=== PATIENT | male | born 1950 | race African-American/Black ===

== ENCOUNTER 2020-03-20 09:42 | Outpatient (CLI) | payer MEDICARE, SELFPAY ==
[2020-03-20 12:05] LABS: Hematocrit 38.9 % (42.0-52.0); Hemoglobin 13.1 g/dL (14.0-18.0)
[2020-03-20 12:16] LABS: INR 2.4; Prothrombin Time 26.9 Seconds (11.1-14.7)
[2020-03-20 12:17] LABS: Partial Thromboplastin Time 40.7 SECONDS (22.3-36.8)
== END 2020-03-20 09:43 | disposition home or self-care (01) ==
LOC: ANHSURGERY 09:42
PROVIDERS: Anesthesiology; Visit Provider Surgery
DX: D12.6 Benign neoplasm of colon, unspecified (principal); Z79.01 Long term (current) use of anticoagulants; Z01.812 Encounter for preprocedural laboratory examination
CPT/HCPCS: 36415; 85014; 85018; 85610; 85730; 86850; 86900; 86901

== ENCOUNTER 2020-03-27 00:31 | Outpatient (CLI) | payer MEDICARE, SELFPAY ==
[2020-03-27 18:46] LABS: SARS-CoV-2 RNA PCR Negative
== END 2020-03-27 00:32 | disposition home or self-care (01) ==
LOC: ANHCOVIDDT 00:31
PROVIDERS: Visit Provider Surgery
DX: Z01.812 Encounter for preprocedural laboratory examination (principal); Z20.822 Contact with and (suspected) exposure to COVID-19
CPT/HCPCS: C9803; U0003; U0005

== ENCOUNTER 2020-03-31 09:51 | Inpatient (IN) | payer MEDICARE, SELFPAY ==
[2020-03-20 10:13] VITALS: BMI 24.1
--- NOTE | 2020-03-30 12:00 | WPDANESEPPF ---
Anes - Initial Pre Proc Eval Procedure: Operation Date: 03/31/20 09:00 Proposed Procedures p Hand Assisted Laparoscopic Sigmoidectomy, Possible Open - Isidro Fofana DO Date/Time: 03/30/20 12:00 Surgeon: Isidro Fofana DO Pre Op Diagnosis: Turbular Adenoma of Colon Patient Data Age: 69 Gender: M Height: 1.75 m Weight: 74.1 kg Allergies Allergy/AdvReac Type Severity Reaction Status Date / Time No Known Allergies Allergy Verified 03/31/20 07:43 Home Medications Medication Instructions Recorded Confirmed Type atorvastatin 40 mg tablet 40 mg PO QPM 02/18/20 03/31/20 History losartan 100 mg tablet 100 mg PO QAM 02/18/20 03/31/20 History metoprolol succinate 25 mg 25 mg PO QAM 02/18/20 03/31/20 History tablet,extended release 24 hr multivitamin,[id number] 1 tablet PO DAILY 02/18/20 03/31/20 History nifedipine 60 mg tablet,extended 60 mg PO BID 02/18/20 03/31/20 History release tamsulosin 0.4 mg capsule 0.4 mg PO DAILY 02/18/20 03/31/20 History warfarin 2 mg tablet 1 mg PO DAILY 02/18/20 03/31/20 History warfarin 5 mg tablet 5 mg PO DAILY 02/18/20 03/31/20 History aspirin 81 mg PO DAILY 03/20/20 03/31/20 History metronidazole 500 mg PO DIRECTED 03/20/20 03/31/20 History neomycin 500 mg PO DIRECTED 03/20/20 03/31/20 History Patient hx anesthesia problems: none Family hx anesthesia problems: none [facility] Past Medical History Medical History (Updated 03/30/20 @ 12:02 by Gerardo Alfred MD) Antiplatelet or antithrombotic long-term use BPH (benign prostatic hyperplasia) Chronic GERD High cholesterol Hypertension Tobacco abuse Tubular adenoma of colon Surgical History Surgical History (Updated 03/30/20 @ 12:02 by Gerardo Alfred MD) H/O colonoscopy 01/27/2020 History of artificial heart valve aortic valve History of intravascular stent placement right leg Family History Family History Sibling Malignant neoplasm of prostate Sibling Breast cancer Social History Social History Smoking packs per day: 1 Smoking cigarettes per day: 20.0 Years smoked: 50 Smoking pack-years: 50.00 Smoking status: Current every day smoker Tobacco type: cigarettes Alcohol intake: current Drinks per week: 3 Alcohol use details: 3 BEERS/DAY Substance use: former Substance use type: crack/cocaine Last use: 1984 Living arrangements: alone Spiritual care concerns: No Anes - Eval Final PreProcedure Day of Procedure 03/30/20 12:00 Patient weight: normal Heart: regular rate and rhythm Lungs: clear to auscultation and normal air movement Airway: Mallampati scale class II Neurological: alert and oriented Last oral intake: >/= 8 hours ASA classification: III Emergent: no Anesthetic plan: proceed Anesthesia type and monitoring: general ETT Informed Consent: The patient's anesthetic plan and its attendant risks and benefits were discussed with the patient/family/POA. Questions were solicited and answers provided to the satisfaction of the patient/family/POA.
[2020-03-31] VITALS (17 sets, daily range): BP systolic 111–129; BP diastolic 52–79; PULSE 52–75; RESP 11–20; TEMP 35.8–37.1; O2SAT 95–100
--- NOTE | ~2020-03-31 | XR_ITS ---
EXAMINATION: XR abdomen obstructive series DATE: 04/03/2020 10:40 INDICATION: Bloating. Sigmoid colectomy on 03/31/2020. TECHNIQUE: Upright and supine views of the abdomen on 3 radiographs were obtained. COMPARISON: None. FINDINGS: There are dilated loops of small and large bowel. There is a small volume of free intraperi toneal gas, consistent with recent surgery. There are changes of heart valve replacement. IMPRESSION: 1. Dilated small and large bowel, consistent with adynamic ileus. Reviewed, dictated and finalized at location B. P [employer]ER
[2020-03-31] MEDS: ACETAMINOPHEN 500 MG TABLET 1000 MG PO ×3 (07:46→23:31)
[2020-03-31] MEDS: LACTATED RINGERS 1,000 ML 30 ML IV CONT ×2 (07:55→13:09)
--- NOTE | 2020-03-31 07:56 | WPDANESPNB ---
Anes - Peripheral Nerve Block Date/Time: 03/31/20 07:56 I have discussed with the patient/family/POA the placement of a peripheral nerve block for post-operative pain management, including associated risks, benefits, complications, and side effects. Alternative methods of post-operative analgesia were detailed. Questions were solicited and answers provided to the satisfaction of the patient/family/POA. Time-Out: A pre-procedural Time-Out was completed immediately before starting the procedure and confirmed: Patient Identification, Site, Procedure, Patient Position and the Availability of Requisite Equipment. Clinical Indications: Acute post-operative pain management requested by the operative surgeon. Nerve Block Insertion Note Anes-nerve block: other (b/l t8 SHABBIR block) Patient position: supine Skin prep: chlorhexidine Needle: 22 gauge, stimulating, insulated echogenic needle. Needle length: 80 mm Technique: ultrasound (in plane) Injectate: bupivacaine 0.25% with epi 5 mcg/ml (40cc) Observations: tolerated well Complications: none Procedure start time:: 915 Procedure end time:: 920
[2020-03-31] MEDS: KETOROLAC 15 MG/ML VIAL (*BKC) IV PUSH (08:00)
--- NOTE | 2020-03-31 08:48 | PM.IMHP ---
H&P: HPI History of Present Illness Date/Time: 03/31/20 08:48 Chief Complaint: Sigmoid polyp Narrative: Myke Strickland is a 69 year old male who presents for sigmoid colon resection for a large polyp. He had a recent screening colonoscopy done at an outside facility which showed evidence of a large polyp in his sigmoid colon about 25 cm from the anus. The polyp was biopsied and tattooed. Pathology showed evidence of tubular adenoma. He now presents for surgical resection. He has a history of aortic valve replacement and was on warfarin for this. 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 Review of Systems Review of Systems: All systems reviewed & are unremarkable except as noted in HPI and below PMFSH Past Medical History Medical History Antiplatelet or antithrombotic long-term use BPH (benign prostatic hyperplasia) Chronic GERD High cholesterol Hypertension Tobacco abuse Tubular adenoma of colon Surgical History Surgical History H/O colonoscopy 01/27/2020 History of artificial heart valve aortic valve History of intravascular stent placement right leg Family History Family History Sibling Malignant neoplasm of prostate Sibling Breast cancer Social History Social History Smoking packs per day: 1 Smoking cigarettes per day: 20.0 Years smoked: 50 Smoking pack-years: 50.00 Smoking status: Current every day smoker Tobacco type: cigarettes Alcohol intake: current Drinks per week: 3 Alcohol use details: 3 BEERS/DAY Substance use: former Substance use type: crack/cocaine Last use: 1984 Living arrangements: alone Spiritual care concerns: No Meds Home Medications and Allergies Home Medications Medication Instructions Recorded Confirmed Type atorvastatin 40 mg tablet 40 mg PO QPM 02/18/20 03/31/20 History losartan 100 mg tablet 100 mg PO QAM 02/18/20 03/31/20 History metoprolol succinate 25 mg 25 mg PO QAM 02/18/20 03/31/20 History tablet,extended release 24 hr multivitamin,[id number]-czbz-[id number] 1 tablet PO DAILY 02/18/20 03/31/20 History nifedipine 60 mg tablet,extended 60 mg PO BID 02/18/20 03/31/20 History release tamsulosin 0.4 mg capsule 0.4 mg PO DAILY 02/18/20 03/31/20 History warfarin 2 mg tablet 1 mg PO DAILY 02/18/20 03/31/20 History warfarin 5 mg tablet 5 mg PO DAILY 02/18/20 03/31/20 History aspirin 81 mg PO DAILY 03/20/20 03/31/20 History metronidazole 500 mg PO DIRECTED 03/20/20 03/31/20 History neomycin 500 mg PO DIRECTED 03/20/20 03/31/20 History Allergies Allergy/AdvReac Type Severity Reaction Status Date / Time No Known Allergies Allergy Verified 03/31/20 07:43 Vital Signs Vital Signs - 24 hr 03/31/20 06:46 Temperature 36.4 C Pulse Rate 70 Respiratory Rate 20 Blood Pressure 128/68 Pulse Oximetry 100 Exam Const: General: no acute distress and alert Orientation/consciousness: patient oriented x3 HENMT: Head: normocephalic and atraumatic Ears: hearing grossly normal bilaterally General nose exam: Normal nares present Mouth: Yes Normal oral and palatal mucosa present Eyes: Periorbital: periorbital findings normal Sclera: sclerae normal EOM: EOMs intact bilaterally Neck: Neck: normal visual inspection, no lymphadenopathy and trachea midline Chest: Chest palpation & inspection: normal inspection of the chest Resp: Effort & Inspection: normal respiratory effort Auscultation: clear to auscultation bilaterally Cardio: Jugular venous distension: no JVD Rate: regular rate Rhythm: regular rhythm Heart sounds: S1 normal heart sound present and S2 normal heart sound present Peripheral pulses: Peripheral pulses 2+ throughout GI: Inspection: normal to inspection GI Palp: Yes Soft to pa
--- NOTE | 2020-03-31 09:39 | WPDHPUPDATE1 ---
History and Physical Update Update Date/Time: 03/31/20 09:39 History and Physical has been reviewed, including an updated exam of the patient. There are NO changes in the patient's condition. Risks, benefits, and alternatives have been discussed and questions answered. Patient agrees to proceed with procedure.
[2020-03-31] MEDS: ceFAZolin 2 GM/D5W 50 ML 2 GM/50 ML BAG IVPB (09:42)
[2020-03-31] MEDS: metroNIDAZOLE 500 MG/ISO 100ML 500 MG/100 ML BAG 100 MG IVPB (10:00)
--- NOTE | 2020-03-31 10:56 | SUR.OPER ---
Bowel Prep/ 1000ml IV NS infused into bowel via TUR Tubing and Mallecot Catheter 36Fr. Infused slowly in increments. Clear return. Followed by 237ml Betadine flush via bulb syringe. 2000ml drainage bag to mallecot secure to leg strap posterior right thigh/bag to gravity.
--- NOTE | 2020-03-31 11:10 | SUR.OPER ---
Patients coagulation labs of 03/20/[address] Fofana and Dr Alfred/patient stated Coumadin stop date 03/25 no repeat lab/Dr Aguirre aware and to proceed.
--- NOTE | 2020-03-31 12:02 | SUR.OPER ---
ICG Dye to anesthesia 1120 see anesthesia record.
--- NOTE | 2020-03-31 13:04 | PM.PROC ---
Procedure Note - Detailed Date of procedure: 03/31/20 Pre-op diagnosis: Turbular Adenoma of Colon Post-op diagnosis: same Procedure performed: 1. Hand assisted laparoscopic sigmoid colectomy with colorectal anastomosis 2. Laparoscopic mobilization of splenic flexure Description of procedure: Procedure as well as risks benefits and alternatives were explained to the patient. Written consent was obtained and placed in chart prior to procedure. Patient was brought back to surgical suite. He was placed supine on operating table. Time-out was done to confirm patient procedure. He was then intubated by the anesthesia department. He was re-positioned to modified lithotomy position. His abdomen was prepped and draped in sterile fashion using chlorhexidine prep. His rectum was irrigated with Betadine and his perirectal area was prepped and draped in sterile fashion using Betadine prep. A 7 centimeter vertical incision was made at the umbilicus using a 15 blade scalpel. Electrocautery was used for hemostasis and for dissection down through Nile's fascia. The linea alba was then incised using electrocautery. The peritoneum was bluntly entered using a curved hemostats. I carefully inspected the abdomen through the small hand port incision, and then placed the wound protector at this incision followed by the gel port with a 5 millimeter trocar placed through it. Carbon dioxide insufflation was then used to create a pneumoperitoneum. The abdomen was inspected, and no significant abnormalities were identified. The patient was then placed in steep Trendelenburg position and rotated to the right. Exparel was infiltrated bilaterally along the abdominal wall to perform a transversus abdominis plane block. A 5 millimeter incision was made in the suprapubic region and in the right upper quadrant and 5 millimeter ports were placed under direct visualization. A 12 millimeter incision was made in the right lower quadrant, and a 12 millimeter port was placed under direct visualization. I placed my left hand through the GelPort and carefully inspected the colon. The sigmoid colon was retracted anteriorly to tent up the inferior mesenteric artery and mesocolon. The medial side of the peritoneum was scored using hook electrocautery. I entered into the avascular retroperitoneal plane and continued the medial to lateral dissection. The left ureter was identified and preserved in its location throughout the entire case. The continued dissection with hook electrocautery and ligasure bipolar cautery to clear off the adventitia around the inferior mesenteric artery. Once the inferior mesenteric artery was isolated, I then ligated it with the ligasure bipolar cautery. The ureter was identified and position was verified before like getting the vessel. I then continued along the medial to lateral plane and dissected out to the lateral peritoneal attachments of the descending and sigmoid colon. I then continued this dissection distally along the upper rectum. The sigmoid colon was then retracted further medially and the lateral peritoneal attachments were taken down using hook electrocautery. I continued this dissection up to the descending colon, and as I a required further mobilization of the descending colon I then took down the splenic flexure using ligasure bipolar cautery. The descending colon appeared mobile enough to come down into the pelvis. I then cleared off an area on the upper rectum and took down the mesorectum using ligasure bipolar cautery. The echelon 60 millimeter blue load stapler was then advanced across the upper rectum and clamped and fired. This freed up our rectum completely. The staple line appeared secure. Indocyanine green was then infused intravenously to assess for perfusion to the colon and rectal stump. Perfusion appeared adequate at both ends. The patient was then flattened out in bed and the pneumoperitoneum was released. The sigmoid colon was the
[2020-03-31] MEDS: HYDROmorphone HCL INJ (*CRX) 1 MG/ML SYR 0.25 MG IV PUSH ×4 (13:31→14:10)
--- NOTE | 2020-03-31 14:21 | SUR.PHASEI ---
1420 sbar faxed floor notified
--- NOTE | 2020-03-31 15:30 | PC.NURSE ---
This patient, Myke Strickland, was admitted to Medical Room 261-01. Patient/family oriented to hospital policies and general routines including ID bracelet, bed and alarms, visiting hours, pain management, procedures, bathroom and other care routines, personal items, smoking policy, room service/diet, and visiting hours. Information on how to activate the Rapid Response Team has been discussed. Patient/Family are encouraged to report perceived risks to care and to ask questions if they do not understand what they are told or what they should do.
[2020-03-31] MEDS: LACTATED RINGERS 1,000 ML 100 ML IV CONT (17:12)
[2020-03-31] MEDS: NIFEdipine 30 MG TAB.ER.24 60 MG PO (17:13)
[2020-03-31] MEDS: ATORVASTATIN 40 MG TABLET PO (17:14)
[2020-03-31] MEDS: HYDROmorphone HCL INJ (*CRX) 1 MG/ML SYR 0.5 MG IV PUSH (20:09)
[2020-03-31] MEDS: ENOXAPARIN 30 MG/0.3 ML SYRINGE SUB-Q (21:50)
[2020-04-01] VITALS (7 sets, daily range): BP systolic 109–141; BP diastolic 42–71; PULSE 56–101; RESP 18–21; TEMP 36.1–37.1; O2SAT 91–100
[2020-04-01] MEDS: LACTATED RINGERS 1,000 ML 100 ML IV CONT ×3 (04:15→22:30)
[2020-04-01] MEDS: ACETAMINOPHEN 500 MG TABLET 1000 MG PO ×4 (05:08→23:47)
[2020-04-01 05:38] LABS: Hematocrit 33.1 % (42.0-52.0); Hemoglobin 11.1 g/dL (14.0-18.0); Mean Corpuscular HGB Conc 33.5 g/dl (32-36); Mean Corpuscular Hemoglobin 32.6 pg (26-34); Mean Corpuscular Volume 97.4 fl (80-100); Mean Platelet Volume 9.5 fl (7.4-10.4); Platelet Count Result 279 k/mm3 (150-375); Red Cell Distribution Width 14.8 % (11.5-14.5); White Blood Count 22.5 K/mm3 (4.5-10.0)
[2020-04-01 05:54] LABS: Anion Gap 4 mmol/L (8-16); Blood Urea Nitrogen 12 mg/dL (9-20); Calcium 8.2 mg/dL (8.4-10.2); Carbon Dioxide 26 mmol/L (22-30); Chloride 107 mmol/L (98-107); Estimated CRCL calculation 62 ml/min; Estimated Glomerular Filt Rate > 60; Glucose 101 mg/dL (75-110); Potassium 3.6 mmol/L (3.4-5.0); Sodium 137 mmol/L (137-145)
[2020-04-01 06:21] LABS: Band Neutrophils Percent 4 % (0-6); Monocytes Percent Manual 4 % (3-9); Neutrophils Percent Manual 76 % (46-73); Total Cells Counted 100
[2020-04-01 06:22] LABS: Platelet Estimate Adequate (Adequate)
[2020-04-01] MEDS: NIFEdipine 30 MG TAB.ER.24 60 MG PO ×2 (08:48→16:57)
[2020-04-01] MEDS: METOPROLOL SUCCINATE EXT REL 25 MG TABCR PO (08:48)
[2020-04-01] MEDS: ASPIRIN 81 MG CHEWABLE TABLET PO (08:48)
[2020-04-01] MEDS: TAMSULOSIN HCL 0.4 MG CAPSULE PO (08:48)
[2020-04-01] MEDS: ENOXAPARIN 30 MG/0.3 ML SYRINGE SUB-Q ×2 (08:49→21:01)
--- NOTE | 2020-04-01 08:50 | WPDANESPN ---
Anes - Prog Note Post-Op Date/Time: 04/01/20 08:50 Cardiovascular status: normal Respiratory status: normal Airway patency: baseline Mental status: baseline Post-Op hydration status: normal Vital Signs: Last Vital Signs Temp 37.1 C 04/01/20 05:01 Pulse 56 L 04/01/20 08:48 Resp 21 H 04/01/20 05:01 BP 109/57 L 04/01/20 05:01 Pulse Ox 100 04/01/20 05:01 Pain Score (VAS): 4 I/O: Intake & Output 03/31/20 04/01/20 04/01/20 23:59 07:59 15:59 Intake Total 920 2150 Output Total 1600 800 Balance -680 1350 Laboratory Tests 04/01/20 05:09 04/01/20 05:09 04/01/20 04/01/20 05:09 05:09 WBC 22.5 H RBC 3.40 L Hgb 11.1 L Hct 33.1 L MCV 97.4 MCH 32.6 MCHC 33.5 RDW 14.8 H Plt Count 279 MPV 9.5 Immature Gran % (Auto) Not Reportable Neut % (Auto) Not Reportable Lymph % (Auto) Not Reportable [place] % (Auto) Not Reportable Eos % (Auto) Not Reportable Baso % (Auto) Not Reportable Lymph # (Auto) Not Reportable [place] # (Auto) Not Reportable Eos # (Auto) Not Reportable Baso # (Auto) Not Reportable Abs Immat Gran (auto) Not Reportable Absolute Neuts (auto) Not Reportable Absolute Nucleated RBC Not Reportable Total Counted 100 Neutrophils % (Manual) 76 H Band Neutrophils % 4 Lymphocytes % (Manual) 16.0 L Monocytes % (Manual) 4 Nucleated RBC % Not Reportable Abs Neuts (Manual) 18.00 H Abs Lymphs (Manual) 3.60 Abs Monocytes (Manual) 0.90 Platelet Estimate Adequate Sodium 137 Potassium 3.6 Chloride 107 Carbon Dioxide 26 Anion Gap 4 L BUN 12 Creatinine 1.00 Estim Creat Clear Calc 62 Estimated GFR > 60 Glucose 101 Calcium 8.2 L Post-procedural complaints: none Patient Feedback: Patient satisfied with anesthetic care.
--- NOTE | 2020-04-01 09:42 | PM.PNGS ---
Progress Note: A&P Assessment and Plan (1) Tubular adenoma of colon: Code(s): D12.6 - Benign neoplasm of colon, unspecified Status: Acute Assessment and Plan: Doing well on POD#1. Since patient is a little bloated, will continue clear liquids today instead of advancing diet. Increase activity slowly. Await further return of bowel function. Pathology pending. (2) BPH (benign prostatic hyperplasia): Code(s): N40.0 - Benign prostatic hyperplasia without lower urinary tract symptoms Status: Acute (3) History of aortic valve replacement: Code(s): Z95.2 - Presence of prosthetic heart valve Status: Acute Subjective Subjective Date/Time Seen: 04/01/20 09:42 Post Op day: 1 Patient reports: flatus and bowel movement Interval history: Feeling a little bloated this AM. Passing flatus and had a small liquid BM this AM. Quiroga removed and patient able to urinate small amount. Pain controlled. Exam GI: Inspection: other (mildly distended) GI Palp: Yes Tenderness to palpation present (GI) (appropriate incisional) and No Guarding due to palpation present (GI) Auscultation: Hypoactive bowel sounds present Objective Data Vital Signs Vital Signs: Vital Signs - 24 hr 03/31/20 13:00 03/31/20 13:15 03/31/20 13:30 Temperature 36.4 C L Pulse Rate 67 57 L 54 L Respiratory Rate 15 20 18 Blood Pressure 111/63 119/61 123/67 Pulse Oximetry 100 100 100 03/31/20 13:45 03/31/20 14:00 03/31/20 14:15 Temperature Pulse Rate 58 L 52 L 56 L Respiratory Rate 16 11 L 16 Blood Pressure 118/59 L 116/59 L 114/71 Pulse Oximetry 95 100 95 03/31/20 14:30 03/31/20 14:45 03/31/20 15:00 Temperature Pulse Rate 60 52 L 61 Respiratory Rate 14 16 16 Blood Pressure 122/75 121/67 122/68 Pulse Oximetry 99 97 98 03/31/20 15:30 03/31/20 15:45 03/31/20 16:15 Temperature 36.1 C L 35.8 C L 35.8 C L Pulse Rate 66 64 72 Respiratory Rate 16 16 16 Blood Pressure 117/68 111/79 129/71 Pulse Oximetry 100 96 97 03/31/20 16:35 03/31/20 17:15 03/31/20 18:00 Temperature 36.6 C 36.1 C L Pulse Rate 75 64 Respiratory Rate 18 18 Blood Pressure 125/53 L 121/52 L Pulse Oximetry 100 96 97 03/31/20 22:00 04/01/20 01:01 04/01/20 05:01 Temperature 37.1 C 36.1 C L 37.1 C Pulse Rate 68 63 60 Respiratory Rate 20 20 21 H Blood Pressure 125/52 L 118/50 L 109/57 L Pulse Oximetry 98 98 100 04/01/20 08:48 Temperature Pulse Rate 56 L Respiratory Rate Blood Pressure Pulse Oximetry Intake/Output Intake/Output: Intake & Output 03/29/20 03/30/20 03/31/20 04/01/20 23:59 23:59 23:59 23:59 Intake Total 1670 2150 Output Total 1740 800 Balance -70 1350 Meds/Results Medications: Active Medications Generic Name Dose Route Start Last Admin Trade Name Freq PRN Reason Stop Dose Admin Acetaminophen 1,000 mg 03/31/20 18:00 04/01/20 05:08 Acetaminophen 500 Mg Tablet PO 1,000 mg Q6HR STACIE Administration Aspirin 81 mg 04/01/20 09:00 04/01/20 08:48 Aspirin 81 Mg Chewable Tablet PO 81 mg DAILY STACIE Administration Atorvastatin Calcium 40 mg 03/31/20 18:00 03/31/20 17:14 Atorvastatin 40 Mg Tablet PO 40 mg QPM STACIE Administration Enoxaparin Sodium 30 mg 03/31/20 21:00 04/01/20 08:49 Enoxaparin 30 Mg/0.3 Ml Syringe SUB-Q 30 mg Q12HR STACIE Administration Hydromorphone HCl 1 mg 03/31/20 15:16 Hydromorphone Hcl Inj (*Crx) 1 Mg/Ml Syr IV PUSH Q2H PRN Pain Rated 7-10 Hydromorphone HCl 0.5 mg 03/31/20 15:16 03/31/20 20:09 Hydromorphone Hcl Inj (*Crx) 1 Mg/Ml Syr IV PUSH 0.5 mg Q2H PRN Administration Pain Rated 4-6 Lactated Ringer's 1,000 mls @ 100 mls/hr 03/31/20 15:16 04/01/20 04:15 Lr - Lactated Ringers Iv IV CONT 100 mls/hr .Q10H STACIE Administration Metoprolol Succinate 25 mg 04/01/20 09:00 04/01/20 08:48 Metoprolol Succinate Ext Rel 25 Mg Tabcr PO 25 mg QAM STACIE Administration Nifedipine 60 mg 0
--- NOTE | 2020-04-01 16:50 | PC.NURSE ---
Patient transferred to 219. Report given to MERCED Mcclure.
[2020-04-01] MEDS: ATORVASTATIN 40 MG TABLET PO (17:52)
[2020-04-02 04:54] VITALS: BP 123/51; PULSE 76; RESP 18; TEMP 36.9; O2SAT 97
[2020-04-02 04:57] LABS: Hematocrit 34.3 % (42.0-52.0); Hemoglobin 11.7 g/dL (14.0-18.0); Mean Corpuscular HGB Conc 34.1 g/dl (32-36); Mean Corpuscular Hemoglobin 32.3 pg (26-34); Mean Corpuscular Volume 94.8 fl (80-100); Mean Platelet Volume 9.5 fl (7.4-10.4); Platelet Count Result 279 k/mm3 (150-375); Red Blood Count 3.62 M/mm3 (4.6-6.20); Red Cell Distribution Width 14.8 % (11.5-14.5); White Blood Count 17.8 K/mm3 (4.5-10.0)
[2020-04-02 05:08] LABS: Anion Gap 3 mmol/L (8-16); Blood Urea Nitrogen 10 mg/dL (9-20); Calcium 8.2 mg/dL (8.4-10.2); Carbon Dioxide 27 mmol/L (22-30); Chloride 109 mmol/L (98-107); Estimated CRCL calculation 69 ml/min; Estimated Glomerular Filt Rate > 60; Glucose 91 mg/dL (75-110); Potassium 3.6 mmol/L (3.4-5.0); Sodium 139 mmol/L (137-145)
[2020-04-02] MEDS: ACETAMINOPHEN 500 MG TABLET 1000 MG PO (05:23)
[2020-04-02 08:15] VITALS: PULSE 75
[2020-04-02] MEDS: METOPROLOL SUCCINATE EXT REL 25 MG TABCR PO (08:15)
[2020-04-02] MEDS: TAMSULOSIN HCL 0.4 MG CAPSULE PO (08:15)
[2020-04-02] MEDS: ASPIRIN 81 MG CHEWABLE TABLET PO (08:15)
[2020-04-02] MEDS: NIFEdipine 30 MG TAB.ER.24 60 MG PO ×2 (08:15→18:03)
[2020-04-02] MEDS: ENOXAPARIN 30 MG/0.3 ML SYRINGE SUB-Q ×2 (08:15→20:16)
[2020-04-02] MEDS: LACTATED RINGERS 1,000 ML 100 ML IV CONT (08:30)
[2020-04-02 09:31] VITALS: RESP 18; O2SAT 97
--- NOTE | 2020-04-02 11:13 | PM.PNGS ---
Progress Note: A&P Assessment and Plan (1) Tubular adenoma of colon: Code(s): D12.6 - Benign neoplasm of colon, unspecified Status: Acute Assessment and Plan: Bowels moving, will advance to full liquid diet today and stop IV fluids WBC elevated, but he is otherwise doing well showing no signs of infection, likely just reactive, will repeat tomorrow (2) BPH (benign prostatic hyperplasia): Code(s): N40.0 - Benign prostatic hyperplasia without lower urinary tract symptoms Status: Acute Assessment and Plan: Urinating with Quiroga out (3) History of aortic valve replacement: Code(s): Z95.2 - Presence of prosthetic heart valve Status: Acute Assessment and Plan: On DVT prophylaxis, may start full anticoagulation tomorrow if he is continuing to do well. Subjective Subjective Date/Time Seen: 04/02/20 11:13 Post Op day: 2 Patient reports: flatus and bowel movement Interval history: Patient still feeling a little bloated, but denies nausea or vomiting. Tolerating clears. Passing flatus and having small liquid BM's. Minimal pain and tolerating ambulating in halls. Exam GI: Inspection: incision (intact with glue) and other (minimally distended) GI Palp: Yes Soft to palpation and No Tenderness to palpation present (GI) Percussion: Yes normal to percussion Auscultation: normal bowel sounds Objective Data Vital Signs Vital Signs: Vital Signs - 24 hr 04/01/20 14:00 04/01/20 17:01 04/01/20 19:57 Temperature 36.4 C 36.5 C 36.7 C Pulse Rate 69 68 76 Respiratory Rate 18 18 20 Blood Pressure 132/58 L 130/60 141/71 H Pulse Oximetry 99 98 91 04/02/20 04:54 04/02/20 08:15 04/02/20 09:31 Temperature 36.9 C Pulse Rate 76 75 Respiratory Rate 18 18 Blood Pressure 123/51 L Pulse Oximetry 97 97 Intake/Output Intake/Output: Intake & Output 03/30/20 03/31/20 04/01/20 04/02/20 23:59 23:59 23:59 23:59 Intake Total 1670 5780 2756 Output Total 1740 1250 Balance -70 4750 2756 Meds/Results Medications: Active Medications Generic Name Dose Route Start Last Admin Trade Name Freq PRN Reason Stop Dose Admin Aspirin 81 mg 04/01/20 09:00 04/02/20 08:15 Aspirin 81 Mg Chewable Tablet PO 81 mg DAILY STACIE Administration Atorvastatin Calcium 40 mg 03/31/20 18:00 04/01/20 17:52 Atorvastatin 40 Mg Tablet PO 40 mg QPM STACIE Administration Enoxaparin Sodium 30 mg 03/31/20 21:00 04/02/20 08:15 Enoxaparin 30 Mg/0.3 Ml Syringe SUB-Q 30 mg Q12HR STACIE Administration Hydromorphone HCl 1 mg 03/31/20 15:16 Hydromorphone Hcl Inj (*Crx) 1 Mg/Ml Syr IV PUSH Q2H PRN Pain Rated 7-10 Hydromorphone HCl 0.5 mg 03/31/20 15:16 03/31/20 20:09 Hydromorphone Hcl Inj (*Crx) 1 Mg/Ml Syr IV PUSH 0.5 mg Q2H PRN Administration Pain Rated 4-6 Metoprolol Succinate 25 mg 04/01/20 09:00 04/02/20 08:15 Metoprolol Succinate Ext Rel 25 Mg Tabcr PO 25 mg QAM STACIE Administration Nifedipine 60 mg 03/31/20 17:00 04/02/20 08:15 Nifedipine 30 Mg Tab.Er.24 PO 60 mg BID [facility] Administration Ondansetron HCl 4 mg 03/31/20 15:16 Ondansetron Inj 4 Mg/2 Ml Vial IV PUSH Q4H PRN Nausea And Vomiting Tamsulosin HCl 0.4 mg 04/01/20 09:00 04/02/20 08:15 Tamsulosin Hcl 0.4 Mg Capsule PO 0.4 mg DAILY STACIE Administration Labs Labs: Laboratory Results - last 24 hr 04/02/20 04/02/20 04:39 04:39 WBC 17.8 H RBC 3.62 L Hgb 11.7 L Hct 34.3 L MCV 94.8 MCH 32.3 MCHC 34.1 RDW 14.8 H Plt Count 279 MPV 9.5 Sodium 139 Potassium 3.6 Chloride 109 H Carbon Dioxide 27 Anion Gap 3 L BUN 10 Creatinine 0.90 Estim Creat Clear Calc 69 Estimated GFR > 60 Glucose 91 Calcium 8.2 L
[2020-04-02 14:00] VITALS: BP 123/62; PULSE 67; RESP 18; TEMP 36.9; O2SAT 97
[2020-04-02] MEDS: ATORVASTATIN 40 MG TABLET PO (18:05)
[2020-04-02] MEDS: HYDROcodone/acetaminophen (*CRX) 5-325 MG TABLET 1 TAB PO (18:47)
[2020-04-02 20:25] VITALS: BP 110/62; PULSE 65; RESP 14; TEMP 36.6; O2SAT 92
[2020-04-03 04:50] VITALS: BP 124/68; PULSE 70; RESP 14; TEMP 37.1; O2SAT 90
[2020-04-03 05:02] LABS: Hematocrit 37.1 % (42.0-52.0); Hemoglobin 12.7 g/dL (14.0-18.0); Mean Corpuscular HGB Conc 34.2 g/dl (32-36); Mean Corpuscular Hemoglobin 32.5 pg (26-34); Mean Corpuscular Volume 94.9 fl (80-100); Mean Platelet Volume 9.8 fl (7.4-10.4); Platelet Count Result 302 k/mm3 (150-375); Red Blood Count 3.91 M/mm3 (4.6-6.20); Red Cell Distribution Width 14.8 % (11.5-14.5); White Blood Count 16.3 K/mm3 (4.5-10.0)
[2020-04-03 05:10] LABS: INR 0.9; Prothrombin Time 13.2 Seconds (11.1-14.7)
[2020-04-03 05:11] LABS: Anion Gap 2 mmol/L (8-16); Blood Urea Nitrogen 11 mg/dL (9-20); Calcium 8.5 mg/dL (8.4-10.2); Carbon Dioxide 28 mmol/L (22-30); Chloride 106 mmol/L (98-107); Estimated CRCL calculation 69 ml/min; Estimated Glomerular Filt Rate > 60; Glucose 97 mg/dL (75-110); Potassium 3.7 mmol/L (3.4-5.0); Sodium 136 mmol/L (137-145)
--- NOTE | 2020-04-03 07:49 | PM.PNGS ---
Progress Note: A&P Assessment and Plan (1) Tubular adenoma of colon: Code(s): D12.6 - Benign neoplasm of colon, unspecified Status: Acute Assessment and Plan: Still feeling bloated, will get abdominal X ray today. Stay on full liquids for now WBC still elevated but slowly trending down, no fevers or tachycardia (2) BPH (benign prostatic hyperplasia): Code(s): N40.0 - Benign prostatic hyperplasia without lower urinary tract symptoms Status: Acute (3) History of aortic valve replacement: Code(s): Z95.2 - Presence of prosthetic heart valve Status: Acute Assessment and Plan: On DVT prophylaxis, will resume anticoagulation once bowels are moving more regularly and bloating resolves Subjective Subjective Date/Time Seen: 04/03/20 07:49 Post Op day: 3 Interval history: Still feeling bloated when he eats. Passing flatus. Bowels moving. He does notice some blood in his stool but says it isn't a lot. No fevers. Having a little more pain today, but controlled with pain meds and currently he says he has no pain. Exam GI: Inspection: distended GI Palp: Yes Soft to palpation, No Tenderness to palpation present (GI) and No Guarding due to palpation present (GI) Objective Data Vital Signs Vital Signs: Vital Signs - 24 hr 04/02/20 08:15 04/02/20 09:31 04/02/20 14:00 Temperature 36.9 C Pulse Rate 75 67 Respiratory Rate 18 18 Blood Pressure 123/62 Pulse Oximetry 97 97 04/02/20 20:25 04/03/20 04:50 Temperature 36.6 C 37.1 C Pulse Rate 65 70 Respiratory Rate 14 14 Blood Pressure 110/62 124/68 Pulse Oximetry 92 90 Intake/Output Intake/Output: Intake & Output 03/31/20 04/01/20 04/02/20 04/03/20 23:59 23:59 23:59 23:59 Intake Total 1670 5780 3582 400 Output Total 1740 1250 Balance -70 4530 3582 400 Meds/Results Medications: Active Medications Generic Name Dose Route Start Last Admin Trade Name Freq PRN Reason Stop Dose Admin Acetaminophen 650 mg 04/02/20 11:13 Acetaminophen 325 Mg Tablet PO Q6HR PRN Pain Rated 1-3 Hydrocodone Bitart/Acetaminophen 1 tab 04/02/20 11:11 Hydrocodone/Acetaminophen (*Crx) 10-325 Mg Tablet PO Q4H PRN Pain Rated 7-10 Hydrocodone Bitart/Acetaminophen 1 tab 04/02/20 11:11 04/02/20 18:47 Hydrocodone/Acetaminophen (*Crx) 5-325 Mg Tablet PO 1 tab Q4H PRN Administration Pain Rated 4-6 Aspirin 81 mg 04/01/20 09:00 04/02/20 08:15 Aspirin 81 Mg Chewable Tablet PO 81 mg DAILY STACIE Administration Atorvastatin Calcium 40 mg 03/31/20 18:00 04/02/20 18:05 Atorvastatin 40 Mg Tablet PO 40 mg QPM STACIE Administration Enoxaparin Sodium 30 mg 03/31/20 21:00 04/02/20 20:16 Enoxaparin 30 Mg/0.3 Ml Syringe SUB-Q 30 mg Q12HR STACIE Administration Hydromorphone HCl 1 mg 03/31/20 15:16 Hydromorphone Hcl Inj (*Crx) 1 Mg/Ml Syr IV PUSH Q2H PRN Pain Rated 7-10 Hydromorphone HCl 0.5 mg 03/31/20 15:16 03/31/20 20:09 Hydromorphone Hcl Inj (*Crx) 1 Mg/Ml Syr IV PUSH 0.5 mg Q2H PRN Administration Pain Rated 4-6 Metoprolol Succinate 25 mg 04/01/20 09:00 04/02/20 08:15 Metoprolol Succinate Ext Rel 25 Mg Tabcr PO 25 mg QAM STACIE Administration Nifedipine 60 mg 03/31/20 17:00 04/02/20 18:03 Nifedipine 30 Mg Tab.Er.24 PO 60 mg BID STACIE Administration Ondansetron HCl 4 mg 03/31/20 15:16 Ondansetron Inj 4 Mg/2 Ml Vial IV PUSH Q4H PRN Nausea And Vomiting Tamsulosin HCl 0.4 mg 04/01/20 09:00 04/02/20 08:15 Tamsulosin Hcl 0.4 Mg Capsule PO 0.4 mg DAILY STACIE Administration Labs Labs: Laboratory Results - last 24 hr 04/03/20 04/03/20 04/03/20 04:34 04:34 04:34 WBC 16.3 H RBC 3.91 L Hgb 12.7 L Hct 37.1 L MCV 94.9 MCH 32.5 MCHC 34.2 RDW 14.8 H Plt Count 302 MPV 9.8 PT 13.2 INR 0.9 Sodium 136 L Potassium 3.7 Chloride 106 Carbon Dioxide
[2020-04-03 08:00] VITALS: PULSE 68; RESP 20; O2SAT 98
[2020-04-03 09:06] VITALS: PULSE 70
[2020-04-03] MEDS: METOPROLOL SUCCINATE EXT REL 25 MG TABCR PO (09:06)
[2020-04-03] MEDS: TAMSULOSIN HCL 0.4 MG CAPSULE PO (09:06)
[2020-04-03] MEDS: ENOXAPARIN 30 MG/0.3 ML SYRINGE SUB-Q ×2 (09:06→21:03)
[2020-04-03] MEDS: ASPIRIN 81 MG CHEWABLE TABLET PO (09:06)
[2020-04-03] MEDS: NIFEdipine 30 MG TAB.ER.24 60 MG PO ×2 (09:06→16:49)
[2020-04-03] MEDS: LACTATED RINGERS 1,000 ML 75 ML IV CONT (13:12)
[2020-04-03] MEDS: METOCLOPRAMIDE HCL INJ 10 MG/2 ML VIAL 5 MG IV PUSH ×2 (13:13→18:21)
[2020-04-03 14:00] VITALS: BP 105/42; PULSE 68; RESP 20; TEMP 37.2; O2SAT 98
[2020-04-03] MEDS: ATORVASTATIN 40 MG TABLET PO (18:21)
[2020-04-03] MEDS: HYDROcodone/acetaminophen (*CRX) 5-325 MG TABLET 1 TAB PO (18:24)
[2020-04-03 22:00] VITALS: BP 101/47; PULSE 66; RESP 16; TEMP 36.6; O2SAT 98
[2020-04-04] MEDS: METOCLOPRAMIDE HCL INJ 10 MG/2 ML VIAL 5 MG IV PUSH ×5 (00:01→23:32)
[2020-04-04] MEDS: LACTATED RINGERS 1,000 ML 75 ML IV CONT ×2 (02:06→15:33)
[2020-04-04 05:23] VITALS: BP 110/65; PULSE 83; RESP 20; TEMP 36.3; O2SAT 97
[2020-04-04 06:11] LABS: Basophils Absolute Auto 0.1 K/mm3 (0.0-0.1); Basophils Percent Auto 0.4 % (0.2-1.2); Eosinophils Absolute Auto 0.6 K/mm3 (0-0.3); Eosinophils Percent Auto 3.3 % (0-4.4); Hematocrit 35.7 % (42.0-52.0); Hemoglobin 12.2 g/dL (14.0-18.0); Immature Granulocyte Absolute 0.06 K/mm3 (0.00-0.031); Immature Granulocyte Percent A 0.4 % (0-0.5); Lymphocytes Absolute Auto 2.69 K/mm3 (0.9-3.2); Lymphocytes Percent Auto 16.1 % (18.3-44.2); Mean Corpuscular HGB Conc 34.2 g/dl (32-36); Mean Corpuscular Hemoglobin 32.3 pg (26-34); Mean Corpuscular Volume 94.4 fl (80-100); Mean Platelet Volume 9.9 fl (7.4-10.4); Monocytes Absolute Auto 1.6 K/mm3 (0.1-0.6); Monocytes Percent Auto 9.4 % (2.6-8.5); Neutrophils Absolute Auto 11.8 K/mm3 (1.3-6.7); Neutrophils Percent Auto 70.4 % (45.5-73.1); Platelet Count Result 336 k/mm3 (150-375); Red Blood Count 3.78 M/mm3 (4.6-6.20); Red Cell Distribution Width 14.6 % (11.5-14.5); White Blood Count 16.7 K/mm3 (4.5-10.0)
[2020-04-04 06:19] LABS: Anion Gap 3 mmol/L (8-16); Blood Urea Nitrogen 13 mg/dL (9-20); Calcium 8.7 mg/dL (8.4-10.2); Carbon Dioxide 30 mmol/L (22-30); Chloride 105 mmol/L (98-107); Estimated CRCL calculation 69 ml/min; Estimated Glomerular Filt Rate > 60; Glucose 98 mg/dL (75-110); Potassium 3.7 mmol/L (3.4-5.0); Sodium 138 mmol/L (137-145)
--- NOTE | 2020-04-04 07:24 | PM.PNGS ---
Progress Note: A&P Assessment and Plan (1) Tubular adenoma of colon: Onset Date: Unknown Code(s): D12.6 - Benign neoplasm of colon, unspecified Status: Acute Assessment and Plan: Patient now several days postop after hand assisted sigmoid resection for a polyp too large removed by colonoscopy. Seen be showing signs of ileus yesterday so his fluids were cut back to clear liquids. Seems to be gradually improving again now. Labs appear to be okay. Will check magnesium and electrolytes tomorrow. (2) BPH (benign prostatic hyperplasia): Code(s): N40.0 - Benign prostatic hyperplasia without lower urinary tract symptoms Status: Acute (3) Chronic GERD: Onset Date: Unknown Code(s): K21.9 - Gastro-esophageal reflux disease without esophagitis Status: Acute Assessment and Plan: Continue PPI's postop. (4) Antiplatelet or antithrombotic long-term use: Code(s): Z79.02 - skilled nursing (current) use of antithrombotics/antiplatelets Status: Acute (5) Tobacco abuse: Code(s): Z72.0 - Tobacco use Status: Acute (6) History of aortic valve replacement: Onset Date: Unknown Code(s): Z95.2 - Presence of prosthetic heart valve Status: Acute Assessment and Plan: Continue current level of Lovenox and then resume Coumadin a day or so before discharge. Will hold off on doing this today as patient states he sees a little bit of blood occasionally in his stool within the it is liquid. Subjective Subjective Date/Time Seen: 04/04/20 07:24 Patient up walking on the floor when I came to . He denies nausea at this time. He does state that he occasionally feels a little bit nauseated but has not vomited overnight. Nurse reports no bowel movements in the last 12 hours however patient reports at least 2 liquid bowel movements since surgery. He states he is passing gas today. Denies much abdominal pain but is taking some pain pills periodically. Review of Systems Constitutional: Constitutional: Reports no additional constitutional complaints ENT: Reports other (Mucous Membranes moist.) Cardiovascular: Cardiovascular: Denies dyspnea Respiratory: Respiratory: Denies pain on inspiration and Denies dyspnea Musculoskeletal: Musculoskeletal: Reports other (No calf swelling or edema) Integumentary/Breasts: Skin/Breast: Reports system reviewed and no additional complaints, except as docu Exam Const: General: cooperative, no acute distress, alert and awake Orientation/consciousness: patient oriented x3 HENMT: Mouth: Yes moist mucous membranes Neck: Neck: normal visual inspection Chest: Chest palpation & inspection: normal inspection of the chest Resp: Effort & Inspection: normal respiratory effort Auscultation: clear to auscultation bilaterally Cardio: Jugular venous distension: no JVD Rate: regular rate Rhythm: regular rhythm GI: Inspection: distended and incision (Clean and dry with surgical glue on them.) GI Palp: No abdominal tenderness Auscultation: Hypoactive bowel sounds present Rectal Exam: deferred Neuro: General: patient oriented x3 and moves all extremities Speech: normal speech Extrem: General: normal exam except as noted Psych: Mental Status: mental status grossly normal Speech and movement: Normal speech and movement present Affect: normal affect Thought content: Yes Normal thought content present Objective Data Vital Signs Vital Signs: Vital Signs - 24 hr 04/03/20 08:00 04/03/20 09:06 04/03/20 14:00 Temperature 37.2 C Pulse Rate 68 70 68 Respiratory Rate 20 20 Blood Pressure 105/42 L Pulse Oximetry 98 98 04/03/20 22:00 04/04/20 05:23 Temperature 36.6 C 36.3 C L Pulse Rate 66 83 Respiratory Rate 16 20 Blood Pressure 101/47 L 110/65 Pulse Oximetry 98 97 Intake/Output Intake/Output: Intake & Output 04/01/20 04/02/20 04/03/20 04/04/20 23:59 23:59 23:59 23:59 Intake Total 9632 6661 4171
[2020-04-04 08:00] VITALS: PULSE 59; RESP 18; O2SAT 97
[2020-04-04] MEDS: ASPIRIN 81 MG CHEWABLE TABLET PO (10:02)
[2020-04-04] MEDS: ENOXAPARIN 30 MG/0.3 ML SYRINGE SUB-Q ×2 (10:02→20:30)
[2020-04-04 10:03] VITALS: PULSE 72
[2020-04-04] MEDS: METOPROLOL SUCCINATE EXT REL 25 MG TABCR PO (10:03)
[2020-04-04] MEDS: NIFEdipine 30 MG TAB.ER.24 60 MG PO ×2 (10:03→18:00)
[2020-04-04] MEDS: TAMSULOSIN HCL 0.4 MG CAPSULE PO (10:04)
[2020-04-04 14:00] VITALS: BP 127/66; PULSE 59; RESP 18; TEMP 37.1; O2SAT 97
[2020-04-04] MEDS: ATORVASTATIN 40 MG TABLET PO (18:00)
[2020-04-04 21:25] VITALS: BP 125/48; PULSE 63; RESP 18; TEMP 36.4; O2SAT 97
[2020-04-05 05:21] LABS: Basophils Absolute Auto 0.1 K/mm3 (0.0-0.1); Basophils Percent Auto 0.5 % (0.2-1.2); Eosinophils Absolute Auto 0.6 K/mm3 (0-0.3); Eosinophils Percent Auto 4.3 % (0-4.4); Hematocrit 37.5 % (42.0-52.0); Hemoglobin 12.6 g/dL (14.0-18.0); Immature Granulocyte Absolute 0.06 K/mm3 (0.00-0.031); Immature Granulocyte Percent A 0.5 % (0-0.5); Lymphocytes Absolute Auto 2.71 K/mm3 (0.9-3.2); Mean Corpuscular HGB Conc 33.6 g/dl (32-36); Mean Corpuscular Hemoglobin 31.9 pg (26-34); Mean Corpuscular Volume 94.9 fl (80-100); Mean Platelet Volume 9.4 fl (7.4-10.4); Monocytes Absolute Auto 1.3 K/mm3 (0.1-0.6); Monocytes Percent Auto 9.7 % (2.6-8.5); Neutrophils Absolute Auto 8.2 K/mm3 (1.3-6.7); Platelet Count Result 342 k/mm3 (150-375); Red Blood Count 3.95 M/mm3 (4.6-6.20); Red Cell Distribution Width 14.5 % (11.5-14.5); White Blood Count 12.9 K/mm3 (4.5-10.0)
[2020-04-05 05:51] LABS: Anion Gap 3 mmol/L (8-16); Blood Urea Nitrogen 13 mg/dL (9-20); Calcium 8.9 mg/dL (8.4-10.2); Carbon Dioxide 31 mmol/L (22-30); Chloride 105 mmol/L (98-107); Estimated CRCL calculation 69 ml/min; Estimated Glomerular Filt Rate > 60; Glucose 99 mg/dL (75-110); Magnesium 1.8 mg/dL (1.6-2.3); Potassium 3.9 mmol/L (3.4-5.0); Sodium 139 mmol/L (137-145)
[2020-04-05] MEDS: METOCLOPRAMIDE HCL INJ 10 MG/2 ML VIAL 5 MG IV PUSH (05:52)
[2020-04-05 05:57] VITALS: BP 126/68; PULSE 62; RESP 18; TEMP 36.4; O2SAT 97
[2020-04-05 08:00] VITALS: PULSE 78; RESP 18; O2SAT 97
[2020-04-05 08:38] VITALS: PULSE 78
[2020-04-05] MEDS: METOPROLOL SUCCINATE EXT REL 25 MG TABCR PO (08:38)
[2020-04-05] MEDS: ASPIRIN 81 MG CHEWABLE TABLET PO (08:38)
[2020-04-05] MEDS: NIFEdipine 30 MG TAB.ER.24 60 MG PO (08:38)
[2020-04-05] MEDS: ENOXAPARIN 30 MG/0.3 ML SYRINGE SUB-Q (08:38)
[2020-04-05] MEDS: TAMSULOSIN HCL 0.4 MG CAPSULE PO (08:39)
--- NOTE | 2020-04-05 13:40 | PM.DS ---
DS: Admitting Diagnosis Admitting Diagnosis Admitting Diagnosis: Large tubular adenoma sigmoid colon DS: Discharge Diagnosis Discharge Diagnosis (1) Antiplatelet or antithrombotic long-term use: Code(s): Z79.02 - senior care (current) use of antithrombotics/antiplatelets Status: Acute (2) Tubular adenoma of colon: Onset Date: Unknown Code(s): D12.6 - Benign neoplasm of colon, unspecified Status: Acute (3) Tobacco abuse: Code(s): Z72.0 - Tobacco use Status: Acute (4) History of aortic valve replacement: Onset Date: Unknown Code(s): Z95.2 - Presence of prosthetic heart valve Status: Acute (5) Chronic GERD: Onset Date: Unknown Code(s): K21.9 - Gastro-esophageal reflux disease without esophagitis Status: Acute (6) BPH (benign prostatic hyperplasia): Code(s): N40.0 - Benign prostatic hyperplasia without lower urinary tract symptoms Status: Acute DS: Summary Hospital Course Reason for hospitalization: Colon resection for large tubular adenoma of the sigmoid colon Hospital Course: Patient had a fairly uneventful hospital course. He had a hand assisted laparoscopic sigmoid resection for a apparent benign large tubular adenoma of the sigmoid colon. Six lymph nodes were negative on pathology and this was explained to the patient. Patient developed a mild ileus on postop day 2 however, otherwise seemed to improve nicely and by date of discharge, 04/05/2020 he was tolerating a soft diet for breakfast and lunch. He was not taking any pain medications any more. He was tolerating the pain with just Tylenol or no pain medications. I sent 5 pain pills to the pharmacy in case he needs some at night. He will follow up with Dr. Fofana in the office in 7-10 days. He is on anticoagulation for his heart valve. He has been receiving low-dose Lovenox through his hospital stay however will resume his Coumadin upon discharge. I asked him to do increased dose of Coumadin for the 1st 3 days and outlined how to do this for him. Then he will resume 5 mg a day until he has the next INR in about 1 week. Patient knows he can call the office if there is any problems and there is an instruction sheet sent with his discharge papers. Time spent discussing smoking cessation with patient: 3 to 10 minutes Status at Discharge Cognitive/behavioral status at discharge: normal Functional status at discharge: independent ambulation Overall status at discharge: patient is back to baseline Time Spent with Patient Time attestation: Total time spent providing and/or coordinating discharge services: Time spent: Less than 30 minutes Specific discharge activities: Walking No lifting > 20 lbs. X 7 weeks. May shower Exam Const: General: cooperative, no acute distress, alert and awake Orientation/consciousness: patient oriented x3 HENMT: Mouth: Yes moist mucous membranes Neck: Neck: normal visual inspection Chest: Chest palpation & inspection: normal inspection of the chest Resp: Effort & Inspection: normal respiratory effort Auscultation: clear to auscultation bilaterally Cardio: Jugular venous distension: no JVD Rate: regular rate Rhythm: regular rhythm GI: Inspection: normal to inspection and incision ( Four port incisions and 1 hand port incision in the lower midline healing) Rectal Exam: deferred Other: Incisions healing well with surgical glue in place. Neuro: General: patient oriented x3 and moves all extremities Speech: normal speech Extrem: General: normal exam except as noted Psych: Mental Status: mental status grossly normal Speech and movement: Normal speech and movement present Affect: normal affect Thought content: Yes Normal thought content present DS: Data Data Completed and Pending Completed studies during hospitalization: Pending at discharge 03/31/20 11:55 Surgical [PTH] Routine Labs on day of discharge: Labs from last 24 h
== END 2020-04-05 13:30 | disposition home or self-care (01) | DRG 330 ==
LOC: ANH2MED 16:52 → ANHTRC 04-05 13:40 → ANH2MED 04-09 06:18 → ANHTRC 04-09 06:18
PROVIDERS: Admitting Provider Surgery; PCP Family Medicine; Visit Provider Surgery
PROC: 0D1E4Z4 Bypass Large Intestine to Cutaneous, Percutaneous Endoscopic Approach (ICD-10-PCS; principal; 2020-03-31 09:00)
DX: D12.5 Benign neoplasm of sigmoid colon (principal); K91.89 Other postprocedural complications and disorders of digestive system; K56.7 Ileus, unspecified; K21.9 Gastro-esophageal reflux disease without esophagitis; N40.0 Benign prostatic hyperplasia without lower urinary tract symptoms; F17.210 Nicotine dependence, cigarettes, uncomplicated; Z79.02 Long term (current) use of antithrombotics/antiplatelets; Z95.2 Presence of prosthetic heart valve
CPT/HCPCS: 36415; 74019; 80048; 83735; 85025; 85027; 85610; 88307; 88309; A9270; C1729; C9290; J0330; J0461; J0690; J1100; J1170; J1650; J1885; J2250; J2370; J2405; J2704; J2710; J2765; J3010; J7030; J7120